=== PATIENT | male | born 1975 | race African-American/Black ===

== ENCOUNTER 2020-11-06 08:38 | Emergency (ER) | payer OTHER ==
[~2020-11-06] VITALS: Ht 180.3 cm; Wt 100.0 kg
[2020-11-06] MEDS ORDERED: IBUPROFEN 800 MG TABLET PO ONE (09:15)
[2020-11-06 10:17] VITALS: BP 128/70
== END 2020-11-06 10:32 | disposition home or self-care (01) ==
LOC: EMS 08:38
DX: S80.01XA Contusion of right knee, initial encounter (principal); F17.210 Nicotine dependence, cigarettes, uncomplicated; F12.90 Cannabis use, unspecified, uncomplicated; W19.XXXA Unspecified fall, initial encounter; Y93.89 Activity, other specified; Y92.59 Other trade areas as the place of occurrence of the external cause; Y99.8 Other external cause status
CPT/HCPCS: 29505; 99283